=== PATIENT | male | born 1960 | race Caucasian/White ===

== ENCOUNTER 2023-05-01 13:22 | Emergency (ER) | payer OTHER ==
[2023-05-01 13:27] VITALS: BP 135/79; PULSE 58; RESP 17; TEMP 98.9; BMI 31.7
[2023-05-01] MEDS ORDERED: DIPHTH,PERTUSS(ACELL),TET 0.5 ML DISP.SYRIN IM ONE ×2 (13:40→13:52)
== END 2023-05-01 14:34 | disposition home or self-care (01) ==
LOC: FER 13:22
PROC: 0HQGXZZ Repair Left Hand Skin, External Approach (ICD-10-PCS; principal; 2023-05-01)
PROC: 3E0234Z Introduction of Serum, Toxoid and Vaccine into Muscle, Percutaneous Approach (ICD-10-PCS; 2023-05-01)
DX: S61.211A Laceration without foreign body of left index finger without damage to nail, initial encounter (principal); W26.0XXA Contact with knife, initial encounter
CPT/HCPCS: 90715; 99282-25